=== PATIENT | male | born 2000 | race Caucasian/White ===

== ENCOUNTER 2021-03-22 04:25 | Emergency (ER) | payer SELFPAY ==
[2021-03-22 05:01] VITALS: BP 150/84; PULSE 108; RESP 20; TEMP 37.3; O2SAT 99; BMI 25.1
[2021-03-22 05:58] VITALS: BP 110/83; PULSE 109; RESP 18; TEMP 37.1; O2SAT 100
--- NOTE | 2021-03-22 06:23 | XRR_ITS ---
PROCEDURE INFORMATION: Exam: XR Chest Exam date and time: 03/22/2021 6:23 AM Age: 21 years old Clinical indication: Cough and dyspnea; Patient HX: SOB, coughing x 4 days TECHNIQUE: Imaging protocol: XR of the chest. Views: 1 view. COMPARISON: No relevant prior studies available. FINDINGS: Lungs: There are multiple calcified pulmonary nodules consistent with prior granulomatous disease. Pleural spaces: Unremarkable. No pleural effusion. No pneumothorax. Heart/Mediastinum: Unremarkable. No cardiomegaly. Bones/joints: Unremarkable. XR/XR chest 1V portable [id number] IMPRESSION: No acute disease.
--- NOTE | 2021-03-22 06:46 | W.ED.URI ---
HPI - URI/Sore Throat General: Chief Complaint: Shortness of Breath/Dyspnea Stated Complaint: possible pneumonia Time Seen by Provider: 03/22/21 05:59 Source: patient Mode of arrival: ambulatory Limitations: no limitations History of Present Illness: HPI Narrative: pt with cough prod of green sputum, sore throat, mild frontal headache, myalgias, and feeling warm for past 5 days. pt smokes. pmh: adhd on adderall, ptsd, anx/depression. on lexapro and trazadone also. MD elicited complaint: cough and sore throat Onset (ago): day(s) (4) Consistency: intermittent Severity: mild Description of mucous: green Able to tolerate fluids by mouth: Yes Exacerbating factors: nothing Relieving factors: nothing Associated symptoms: Reports congestion, cough, headache(s) (mild frontal), myalgias and sore throat; Deny abdominal pain, change in voice, chills, chest pain, diarrhea, epistaxis, ear or mastoid pain, nausea, rash, short of breath or vomiting Review of Systems Const: Reports: body aches and other (feels warm); Denies: chills Eyes: Denies: change in vision or blurry vision ENMT: Reports: throat pain; Denies: uvular edema, enlarged tonsils, odynophagia, mouth pain, ear or mastoid pain or epistaxis Card: Denies: chest pain, palpitations or edema Resp: Reports: productive cough and chest congestion; Denies: dyspnea, wheezing or stridor GI: Denies: abdominal pain, nausea, vomiting or diarrhea : Denies: flank pain or dysuria Musc: Denies: neck pain or back pain Skin/Breast: Denies: rash or pruritus Neuro: Reports: headache(s) (mild frontal) Psych: Denies: anxiety Jarett/Lymph: Denies: enlarged lymph nodes All/Imm: Denies: throat swelling Physical Exam Const: COMMON NORMALS: no acute distress, average body habitus, patient oriented x3, no limitations, healthy appearing, alert and well nourished GENERAL APPEARANCE: cooperative HENMT: COMMON NORMALS: normocephalic and atraumatic HEAD & SCALP: normocephalic and atraumatic FACE & SINUS: normal facial exam MOUTH: Normal oral and palatal mucosa present THROAT: posterior oropharynx normal; no uvular edema Eye: COMMON NORMALS: EOMs intact bilaterally Neck/C-Spine: COMMON NORMALS: full ROM, no lymphadenopathy, supple, no meningeal signs and no JVD GENERAL: Yes normal visual inspection Lymph: LYMPHATIC: other (mild tender small mobile lymph node in L supraclavicular area) Chest: COMMONS NORMALS: normal inspection of the chest and normal palpation of entire chest wall CHEST: No Ecchymosis present and No rash Resp: COMMON NORMALS: normal respiratory effort, No retractions, No use of accessory muscles and clear to auscultation bilaterally EFFORT & INSPECTION: No respiratory distress AUSCULTATION: clear to auscultation bilaterally Cardio: COMMON NORMALS: no JVD, regular rate, regular rhythm and Peripheral pulses 2+ throughout JUGULAR VENOUS DISTENTION: no JVD RATE: regular rate and tachycardic (mild; hr 106; sinus tach) RHYTHM: regular rhythm PERIPHERAL PULSES: Peripheral pulses 2+ throughout GI: COMMON NORMALS: Normal to inspection, nondistended, normoactive bowel sounds present, Soft to palpation, non-tender, No hepatosplenomegaly present and no masses PALPATION: Yes Soft to palpation and Yes No hepatosplenomegaly present : COMMON NORMALS: Yes no CVA tenderness BLADDER/KIDNEY EXAM: Yes no CVA tenderness Back/Pelvis: COMMON NORMALS: no CVA tenderness Extremity: COMMON NORMALS: normal to inspection, full ROM and capillary refill normal Neuro: COMMON NORMALS: patient oriented x3, CN's II-XII intact bilaterally, no focal motor deficits and no sensory deficits noted SENSORIUM/ORIENTATION: Yes alert MENINGEAL SIGNS: Yes no meningeal signs Psych: COMMON NORMALS: mental status grossly normal, Normal thought process present, cooperative, normal affect, speech normal and activity/motor behavior normal SPEECH: Yes normal speech THOUGHT PROCESS: Normal thought process present Skin: COMMON NORMALS: no rashes or lesions noted and no wounds GENERAL SKIN EXAM: no rashes or lesions noted Course Vital Signs: Vital signs: Vital Signs Temperature 98.8 F 03/22/21 05:58 Pulse Rate 109 H 03/22/21 05:58 Respiratory Rate 15 03/22/21 08:00 Blood Pressure 110/83 03/22/21 05:58 Pulse Oximetry 100 03/22/21 05:58 MDM - URI/Sore Throat MDM Narrative: Medical decision making narrative: 0658: pt appears to have early LLL pneumonia. i recommended iv rocephin and iv zithromax. pt refused IV but agreed to im rocephin and po zithromax. 0824: pt feeling well Lab Data: Attestation: I reviewed the patient's lab results. Lab results narrative: covid, strep, flu swabs negative Labs: Lab Results 03/22/21 03/22/21 03/22/21 Range/Units 06:45 06:45 06:45 Influenza Type A A g Negative (Negative) Influenza Type B A g Negative (Negative) SARS-CoV-2 Ag (Rap id) Cancelled Group A Strep Rapi d Negative (Negative) 03/22/21 Range/Units 07:55 Influenza Type A A g (Negative) Influenza Type B A g (Negative) SARS-CoV-2 Ag (Rap id) Negative Group A Strep Rapi d (Negative) Imaging Data^: CXR: Attestation: I personally reviewed and interpreted this imaging study as follows: My impression: cxr: early LLL infiltrate c/w early pneumonia Radiologist's impression: Rubina Barraza #: [id number]: [id number]#:[id number]/Sex: 21 / MADM Date: 03/22/21Loc: ERRoom/Bed:Attending Dr: Ordering Provider/Ordering MD: Moe Rome MD Date of Service: 03/22/21 Procedure(s): XR chest 1V portable [id number] Accession Number(s): [id number] Report Number: [id number] PROCEDURE INFORMATION: Exam: XR Chest Exam date and time: 03/22/2021 6:23 AM Age: 21 years old Clinical indication: Cough and dyspnea; Patient HX: SOB, coughing x 4 days TECHNIQUE: Imaging protocol: XR of the chest. Views: 1 view. COMPARISON: No relevant prior studies available. FINDINGS: Lungs: There are multiple calcified pulmonary nodules consistent with prior granulomatous disease. Pleural spaces: Unremarkable. No pleural effusion. No pneumothorax. Heart/Mediastinum: Unremarkable. No cardiomegaly. Bones/joints: Unremarkable. XR/XR chest 1V portable [id number] IMPRESSION: No acute disease. Dictated By:Wili Simmonsed By:Ely Simmons Date/Time:03/22/21 0732 Discharge Plan Discharge Patient Disposition: Home Clinical Impression: Community acquired pneumonia Qualifiers: Laterality: left Lung location: lower lobe of lung Qualified Code(s): J18.9 - Pneumonia, unspecified organism Condition: Stable Prescriptions: New cephalexin 500 mg capsule 500 mg PO QID 7 Days Qty: 28 RF: 0 Zithromax Z-Vel 250 mg tablet See Rx Instructions .ROUTE .COMPLEX Qty: 6 RF: 0 Discharge Orders: Discharge ED (Routine); Ordered 03/22/21 Ordered By: Moe Rome Discharge Diet: Usual diet Discharge Activity: Increase activity as tolerated Patient Instructions: Fever in Adults (ED), Community-acquired Pneumonia (ED), Opioid Safety Activity Restrictions/Additional Instructions: rest for one week. drink plenty of fluids. start cephalexin and zithromax antibiotics tomorrow morning. return if worse. no smoking. Coding Level of Care Code ED Steward/Stewardess Wine for Ni Fwd Exam Comprehensive
[2021-03-22 07:20] LABS: Rapid Strep A Test Negative (Negative)
[2021-03-22] MEDS: azithromycin 250 mg Tablet 500 MG PO (07:24)
[2021-03-22] MEDS: cefTRIAXone 1,000 MG in lidocaine 1% 2.1 ML 1 MG IM (07:24)
[2021-03-22 07:39] LABS: Influenza A by IFA Negative (Negative); Influenza B by IFA Negative (Negative)
[2021-03-22 08:00] VITALS: RESP 15
[2021-03-22 08:23] LABS: SARS Covid-2 Antigen Negative (Negative)
== END 2021-03-22 08:34 | disposition home or self-care (01) ==
PROVIDERS: Emergency Provider Family Medicine
DX: J18.9 Pneumonia, unspecified organism (principal); Z20.822 Contact with and (suspected) exposure to COVID-19
CPT/HCPCS: 71045; 87040; 87081; 87426; 87804; 87880; 96372; 99283; J0696; Q0144